=== PATIENT | female | born 1990 | race Caucasian/White ===

== ENCOUNTER 2024-05-18 11:20 | Emergency (ER) | payer BC, OTHER ==
[~2024-05-18] VITALS: Ht 160 cm; Wt 108.6 kg
[~2024-05-18 11:20] MED LIST: DICY10CA88 PO; NO HOME MEDS; ONDA-243 PO; ONDA4TAB59 PO
[2024-05-18 11:23] VITALS: BP 149/94; PULSE 114; TEMP 98.2; O2SAT 98
[2024-05-18 11:35] VITALS: RESP 18
[2024-05-18] MEDS ORDERED: HYDR-3686 PO (11:41)
[2024-05-18] MEDS ORDERED: FLUO20CA39 PO (11:41)
== END 2024-05-18 12:01 | disposition home or self-care (01) ==
LOC: EEVIPCON 11:21 → ER 11:21
DX: F41.9 Anxiety disorder, unspecified (principal); F32.A Depression, unspecified; F12.90 Cannabis use, unspecified, uncomplicated; Z88.2 Allergy status to sulfonamides; Z79.899 Other long term (current) drug therapy; Z87.442 Personal history of urinary calculi; Z90.49 Acquired absence of other specified parts of digestive tract
CPT/HCPCS: 99283